=== PATIENT | female | born 1970 | race Two or more races ===

== ENCOUNTER 2025-07-18 11:30 | Emergency (ER) | payer BC ==
[~2025-07-18] VITALS: Ht 160 cm; Wt 59.9 kg
[2025-07-18] MEDS ORDERED: ONDANSETRON HCL 2 MG/ML VIAL IV ONE (12:00)
[2025-07-18] MEDS ORDERED: CEFTRIAXONE SODIUM 1,000 MG VIAL IV ONE (12:00)
[2025-07-18] MEDS ORDERED: MORPHINE SULFATE 4 MG/ML CARTRIDGE IV ONE ×2 (12:00→15:30)
[2025-07-18] MEDS ORDERED: FAMOtidine 10 MG/ML (4ML VIAL) IV ONE (12:00)
[2025-07-18] MEDS ORDERED: TAMSULOSIN HCL 0.4 MG CAP PO ONE ×2 (12:00→12:15)
[2025-07-18] MEDS ORDERED: 0.9 % SODIUM CHLORIDE 1,000 ML IV ONE (12:00)
[2025-07-18] MEDS ORDERED: ONDANSETRON HCL 2 MG/ML VIAL ONE (12:16)
[2025-07-18] MEDS ORDERED: FAMOTIDINE/PF 20 MG/2 ML VIAL ONE (12:16)
[2025-07-18] MEDS ORDERED: CEFTRIAXONE SODIUM 1,000 MG VIAL ONE (12:16)
[2025-07-18 12:50] LABS: BASO % 0.2 % (0.1-1.2); EOS # 0.00 (0.04-0.54); EOS % 0.0 % (0.7-7.0); LYMPH # 0.66 (1.18-3.74); LYMPH % 5.3 % (19.3-53.1); MEAN PLATELET VOLUME 10.40 fl (9.4-12.4); MONO # 0.31 (0.24-0.82); MONO % 2.5 % (4.7-12.5); NEUT # 11.47 (1.56-6.13); NEUT % 91.7 % (34.0-71.1); RED CELL DISTRIBUTION WIDTH 12.8 % (11.6-14.4)
[2025-07-18 13:10] LABS: INR 1.09
[2025-07-18 13:13] LABS: ALT/SGPT 26.0 U/L (12-78); AST/SGOT 21.0 U/L (15-37); BILIRUBIN TOTAL 0.47 mg/dL (0.3-1.2); BUN CREA RATIO 18.0 (7.0-25.0); CREATININE SERUM 0.74 mg/dL (0.55-1.02); GFR 81.78; GLOBULINA 2.9 G/DL (2.4-3.5); GLUCOSE FASTING 110.0 mg/dL (65-100); OSMOLALITY SERUM 276.0 MOSM/KG (275-295)
[2025-07-18 13:19] LABS: URINE APPEARANCE Turbid; URINE BILIRRUBIN Negative (NEGATIVE); URINE BLOOD Moderate; URINE COLOR Yellow; URINE GLUCOSE Negative (NEGATIVE); URINE KETONE 15 (NEGATIVE); URINE LEUKOCYTE Negative; URINE NITRATE Negative; URINE PROTEIN 30 (NEGATIVE); URINE UROBILINOGEN 0.2 E.U./dl
[2025-07-18 13:22] LABS: URINE BACTERIA 119.9 uL (0.0-1933); URINE EPITHELIAL CELLS 24.9 uL (0.0-38.8); URINE RBC 381.0 uL (0.0-20.8); URINE WBC 11.0 uL (0.0-23.2)
[2025-07-18 13:31] LABS: URINE CAST 0.29 uL (0.0-1.40)
[2025-07-18] MEDS ORDERED: PEPCID AC20 MG PO (15:28)
[2025-07-18] MEDS ORDERED: NORFLEX100MG PO (15:28)
[2025-07-18] MEDS ORDERED: TAMS0.4C PO (15:28)
[2025-07-18] MEDS ORDERED: BACTRIM DS TAB1 EACH PO (15:28)
== END 2025-07-18 15:52 | disposition home or self-care (01) ==
LOC: ER 11:30
PROVIDERS: General Practice
DX: N20.0 Calculus of kidney (principal); R10.2 Pelvic and perineal pain; R10.9 Unspecified abdominal pain; M54.50 Low back pain, unspecified; Z88.8 Allergy status to other drugs, medicaments and biological substances